=== PATIENT | male | born 1935 | race Hispanic/Latino ===

== ENCOUNTER 2017-11-08 07:30 | Observation (INO) | payer MEDICARE ==
[2017-11-07 16:20] VITALS: BP 106/52
[2017-11-07 16:31] LABS: EOSINOPHILS % (AUTO) 5.5 % (0.0-8.0); HEMATOCRIT 37.9 % (42-54); LYMPHOCYTES % (AUTO) 25.3 % (21.0-51.0); MEAN CORPUSCULAR HEMOGLOBIN 28.7 pg (27.0-33.0); MEAN CORPUSCULAR HGB CONC 33.2 g/dL (32.0-36.0); MEAN CORPUSCULAR VOLUME 86.3 fL (79-99); MONOCYTES % (AUTO) 10.7 % (3.0-13.0); NEUTROPHILS % (AUTO) 57.5 % (40.0-77.0); PLATELET COUNT (AUTO) 262 K/uL (130-400); RED BLOOD CELL COUNT(AUTO) 4.39 MIL/uL (4.50-6.20); RED CELL DISTRIBUTION WIDTH 17.5 % (11.0-15.5); WHITE BLOOD COUNT (AUTO) 7.2 K/uL (4.8-10.8)
[2017-11-07 16:39] LABS: CREATININE 1.7 mg/dL (0.5-1.5); POTASSIUM 5.4 mmol/L (3.5-5.1)
[2017-11-07 16:55] LABS: PARTIAL THROMBOPLASTIN TIME 28.9 SEC (26.3-35.5); PROTHROMBIN TIME 10.5 SEC (9.6-11.6)
[2017-11-08] VITALS (8 sets, daily range): BP systolic 103–154; BP diastolic 58–82
[~2017-11-08] VITALS: Ht 160 cm; Wt 64.0 kg
[~2017-11-08 07:30] MED LIST: ASPI-891 PO; CEFAZOLIN SODIUM 1 GM VIAL IVP SCH; FLEC50TA3 PO; LISI-613 PO; METO25TA6 PO; SODIUM CHLORIDE 0.9% 1000ML 1,000 ML IV SCH; TERA2CAP4 PO
[2017-11-08] MEDS ORDERED: LISI-617 PO (08:16)
[2017-11-08] MEDS ORDERED: LIDOCAINE HCL MPF 1% 5ML VIAL ONE ×2 (14:12→14:16)
[2017-11-08] MEDS ORDERED: BUPIVACAINE/PF 0.25% 30ML VIAL IJ ONE (14:12)
[2017-11-08] MEDS ORDERED: IODIXANOL 320 MG/ML 100 ML VIAL ONE (14:12)
[2017-11-08] MEDS ORDERED: CEFAZOLIN SODIUM 1 GM VIAL ONE (14:13)
[2017-11-08] MEDS ORDERED: MIDAZOLAM HCL 1 MG/ML 2ML VIAL ONE ×2 (14:51→15:13)
[2017-11-08] MEDS ORDERED: MEPERIDINE-PF 25 MG/ML SYG ONE ×2 (14:51→15:13)
[2017-11-08] MEDS ORDERED: ACETAMINOPHEN 325 MG TAB PO PRN (16:30)
[2017-11-08] MEDS ORDERED: ACETAMINOPHEN-CODEINE 300/30MG TAB PO PRN ×2 (16:30)
[2017-11-08] MEDS ORDERED: ONDANSETRON HCL 4 MG/2 ML VIAL IVP PRN (17:30)
[2017-11-08] MEDS ORDERED: HYDRALAZINE HCL 20 MG/ML VIAL IV PRN (17:30)
[2017-11-08] MEDS ORDERED: LISINOPRIL 5 MG TABLET PO SCH (21:00)
[2017-11-08] MEDS: FLECAINIDE ACETATE 100 MG TABLET PO SCH (21:10)
[2017-11-09 00:29] VITALS: BP 154/71
[2017-11-09 04:55] VITALS: BP 161/75
[2017-11-09 07:30] VITALS: BP 162/79
[2017-11-09] MEDS ORDERED: TERAZOSIN HCL 2 MG CAPSULE PO SCH (09:00)
[2017-11-09] MEDS ORDERED: METOPROLOL TARTRATE 25 MG TAB PO SCH (09:00)
[2017-11-09] MEDS ORDERED: ASPIRIN 325MG EC TAB 325 MG TABLET.DR PO SCH (09:00)
[2017-11-09] MEDS: FLECAINIDE ACETATE 100 MG TABLET PO SCH (09:54)
[2017-11-09 11:30] VITALS: BP 135/75
== END 2017-11-09 13:50 | disposition home or self-care (01) ==
LOC: DAH 07:30 → 2DH 07:31
PROVIDERS: ADMIT Internal Medicine Critical Care Medicine; ATTEND Internal Medicine Critical Care Medicine
DX: I42.9 Cardiomyopathy, unspecified (principal); E78.5 Hyperlipidemia, unspecified; I10 Essential (primary) hypertension; Z95.0 Presence of cardiac pacemaker; Z79.82 Long term (current) use of aspirin; Z79.899 Other long term (current) drug therapy; I48.0 Paroxysmal atrial fibrillation
CPT/HCPCS: 33225; 33228; 36415; 71045; 80048; 85025; 85610; 85730; A4606; C1769 ×2; C1900; C2621; G0378 ×30; J0690; J2175 ×2; J2250 ×2; J3490 ×3; Q9967; 99156; 99157